=== PATIENT | female | born 1980 | race Caucasian/White ===

== ENCOUNTER 2023-12-23 15:55 | Emergency (ER) | payer BC ==
--- NOTE | 2023-12-23 16:09 | ED ---
Chest Pain HPI - General Stated Complaint: chest pain Time Seen by Provider: 12/23/23 16:08 - History of Present Illness Initial Comments: This patient is a 43-year-old woman who presents to evaluation for chest pain that came on around 2:30 PM. The patient states she had been at home having a drink with her because he had the day off. She states that she developed substernal chest pain going towards the right shoulder and back. She described as a pressure. She states the pain is constant and she has not really noticed anything that helps or makes it worse. She also had intense nausea and vomiting,. She has not noted any blood or coffee-ground material. When the pain persisted they called ambulance she states she was given ondansetron which helped with the nausea and vomiting. She was also given aspirin and nitroglycerin and she did not really note any change in the pain. MD Complaint: chest pain Onset/Timin -: hour(s) Onset: during rest Pain Location: substernal, right chest Pain Radiation: RUE, back Severity: severe Quality: other (Pressure) Consistency: constant Improves With: nothing Worsens With: nothing Anginal Symptoms: nausea, vomiting Treatments Prior to Arrival: aspirin, nitroglycerin - Related Data Previous Rx's Medication Instructions Recorded Ondansetron Odt [Zofran ODT] 4 mg PO Q8HR PRN #10 tab 12/23/23 Allergies Allergy/AdvReac Type Severity Reaction Status Date / Time codeine Allergy Rash/Hives Verified 12/23/23 16:21 Review of Systems ROS Statement: Those systems with pertinent positive or pertinent negative responses have been documented in the HPI. ROS Other: All systems not noted in ROS Statement are negative. Constitutional: Denies: fever, chills Respiratory: Denies: cough, dyspnea, hemoptysis Cardiovascular: Reports: chest pain. Denies: palpitations, orthopnea, edema, syncope Gastrointestinal: Reports: nausea, vomiting. Denies: abdominal pain, diarrhea, constipation, melena, hematochezia Genitourinary: Denies: dysuria, hematuria Musculoskeletal: Denies: back pain Skin: Denies: rash Neurological: Denies: headache, weakness EKG Findings - EKG Results: EKG: interpreted by ERMD, sinus rhythm (Rate 77 bpm) - Blocks, [place], Hypertrophy, ST Abn: AV and intraventricular conduction: right bundle branch block (fixed/intermittent, complete/incomplete), left anterior fascicular block General Exam Limitations: no limitations General appearance: alert, in no apparent distress Head exam: Present: atraumatic, normocephalic Eye exam: Present: normal appearance. Absent: scleral icterus, conjunctival injection ENT exam: Present: normal oropharynx Neck exam: Present: normal inspection Respiratory exam: Present: normal lung sounds bilaterally. Absent: respiratory distress, wheezes, rales, rhonchi, stridor, chest wall tenderness, accessory muscle use Cardiovascular Exam: Present: regular rate, normal rhythm, normal heart sounds. Absent: systolic murmur, diastolic murmur, rubs, gallop GI/Abdominal exam: Present: soft. Absent: distended, tenderness, guarding, rebound, rigid, mass, pulsatile mass Extremities exam: Present: normal inspection, normal capillary refill. Absent: pedal edema, calf tenderness Back exam: Present: normal inspection. Absent: CVA tenderness (R), CVA tenderness (L) Neurological exam: Present: alert Skin exam: Present: warm, dry, intact, normal color. Absent: rash Course Vital Signs 12/23/23 12/23/23 12/23/23 16:00 16:59 18:44 Temperature 98.0 F Pulse Rate 82 80 73 Respiratory 20 18 18 Rate Blood Pressure 126/77 139/78 144/84 O2 Sat by Pulse 97 96 97 Oximetry 12/23/23 12/23/23 20:06 22:35 Temperature Pulse Rate 75 71 Respiratory 15 15 Rate Blood Pressure 140/90 136/84 O2 Sat by Pulse 97 96 Oximetry Chest Pain MDM - MDM The patient had chest x-ray that I interpreted as negative for acute infiltrate, pneumothorax, congestive heart failure The patient had CT scan of the chest that I interpreted as negative for pulmonary embolism. Was pt. sent in by a medical professional or institution (, PA, CONSUMER STUDIES PROFESSOR, urgent care, hospital, or alf...) When possible be specific @ -[No] Did you speak to anyone other than the patient for history (EMS, parent, family, police, friend...)? What history was obtained from this source @ -[No] Did you review nursing and triage notes (agree or disagree)? Why? @ -[I reviewed and agree with nursing and triage notes] Were old charts reviewed (outside hosp., previous admission, EMS record, old EKG, old radiological studies, urgent care reports/EKG's, alf records)? Report findings @ -[No old charts were reviewed] Differential Diagnosis (chest pain, altered mental status, abdominal pain women, abdominal pain men, vaginal bleeding, weakness, fever, dyspnea, syncope, headache, dizziness, GI bleed, back pain, seizure, CVA, palpatations, mental health, musculoskeletal)? @ -[Differential Chest Pain: Stable Angina, Unstable Angina, STEMI, NSTEMI Aortic Dissection, Pneumothorax, Musculoskeletal, Esophageal Spasm GERD, Cholecystitis, Pancreatitis, Zoster, this is not meant to be an all-inclusive list. EKG interpreted by me (3pts min.). @ -[I interpreted as above] X-rays interpreted by me (1pt min.). @ -[I interpreted as above CT interpreted by me (1pt min.). @ -I interpreted as above U/S interpreted by me (1pt. min.). @ -[None done] What testing was considered but not performed or refused? (CT, X-rays, U/S, labs)? Why? @ -[None] What meds were considered but not given or refused? Why? @ -[None] Did you discuss the management of the patient with other professionals (professionals i.e. , PA, CONSUMER STUDIES PROFESSOR, lab, RT, psych nurse, addiction social worker, public aid eligibility assistant, teacher, enforcement officer, top case assembler)? Give summary @ -[No] Was smoking cessation discussed for >3mins.? @ -[No] Was critical care preformed (if so, how long)? @ -[No] Were there social determinants of health that impacted care today? How? (Homelessness, low income, unemployed, alcoholism, drug addiction, transportation, low edu. Level, literacy, decrease access to med. care, fdc, rehab)? @ -[No] Was there de-escalation of care discussed even if they declined (Discuss DNR or withdrawal of care, Hospice)? DNR status @ -[No] What co-morbidities impacted this encounter? (DM, HTN, Smoking, COPD, CAD, Cancer, CVA, ARF, Chemo, Hep., AIDS, mental health diagnosis, sleep apnea, morbid obesity)? @ -[None] Was patient admitted / discharged? Hospital course, mention meds given and route, prescriptions, significant lab abnormalities, going to OR and other pertinent info. @ -[Patient is a 43-year-old woman here to have evaluation of chest pain. The patient did have mild elevation of D-dimer but CT scan does not reveal evidence of pulmonary embolism. The patient feeling better on reevaluation and would like to go home. Patient declined telemetry admission for serial enzymes. Discussed appropriate further care and follow-up as well as return parameters. Undiagnosed new problem with uncertain prognosis? @ -[No] Drug Therapy requiring intensive monitoring for toxicity (Heparin, Nitro, Insulin, Cardizem)? @ -[No] Were any procedures done? @ -[No] Diagnosis/symptom? @ -[Acute chest pain Acute, or Chronic, or Acute on Chronic? @ -[Acute Uncomplicated (without systemic symptoms) or Complicated (systemic symptoms)? @ -[Uncomplicated Side effects of treatment? @ -[No] Exacerbation, Progression, or Severe Exacerbation? @ -[No] Poses a threat to life or bodily function? How? (Chest pain, [place], [place], pneumonia, PE, COPD, DKA, ARF, appy, cholecystitis, CVA, Diverticulitis, Homicidal, Suicidal, threat to staff... and all critical care pts) @ -[No] Disposition Clinical Impression: Chest pain Disposition: HOME SELF-CARE Condition: Good Instructions (If sedation given, give patient instructions): Chest Pain (ED) Additional Instructions: As we discussed, follow with the veterans rehabilitation counselor to see about having a stress test. Should you have additional episodes and they are related to food follow with the surgeon to see about having a HIDA scan or other gallbladder tests. If you are having symptoms, return emergency department. Prescriptions: Ondansetron Odt [Zofran ODT] 4 mg PO Q8HR PRN #10 tab PRN Reason: Nausea Is patient prescribed a controlled substance at d/c from ED?: No Referrals: None,Stated [Primary Care Provider] - 1-2 days Tolu Barrett MD [STAFF PHYSICIAN] - 1-2 days Cornelio Hamilton MD [STAFF PHYSICIAN] - 1-2 days
[2023-12-23] MEDS: MORPHINE SULFATE 4 MG/ML SYRINGE IV STA (16:29)
[2023-12-23] MEDS: SODIUM CHLORIDE 0.9% 1,000 ML IV STA (16:30)
[2023-12-23 17:01] LABS: Basophils % (A) 0 %; Eosinophils # (A) 0.1 k/uL (0-0.7); Eosinophils % (A) 1 %; HCT 46.6 % (34.0-46.0); HGB 16.2 gm/dL (11.4-16.0); Lymphocytes # (A) 1.7 k/uL (1.0-4.8); Lymphocytes % (A) 20 %; MCH 33.7 pg (25.0-35.0); MCHC 34.8 g/dL (31.0-37.0); MCV 96.6 fL (80.0-100.0); Mean Platelet Volume 10.4; Monocytes # (A) 0.6 k/uL (0-1.0); Monocytes % (A) 7 %; Neutrophils # (A) 6.1 k/uL (1.3-7.7); Neutrophils % (A) 71 %; Platelet Count 255 k/uL (150-450); RBC 4.83 m/uL (3.80-5.40); RDW 13.3 % (11.5-15.5); WBC 8.5 k/uL (3.8-10.6)
--- NOTE | 2023-12-23 17:08 | XR ---
EXAMINATION TYPE: XR chest 2V DATE OF EXAM: 12/23/2023 COMPARISON: None HISTORY: 43-year-old female with chest pain TECHNIQUE: PA and lateral views FINDINGS: The cardiomediastinal silhouette, aorta, and pulmonary vasculature are within normal limits. Lungs an d pleural spaces are clear. IMPRESSION: No acute cardiopulmonary process. [facility], , 12/23/2023 5:06 PM
[2023-12-23 17:45] LABS: Prothrombin Time 11.2 sec (10.0-12.5)
[2023-12-23 17:55] LABS: Partial Thromboplastin Time 20.3 sec (22.0-30.0)
[2023-12-23 18:46] VITALS: TEMP 98
[2023-12-23 19:28] LABS: ALT 112 U/L (4-34); African American GFR (CKD) >90 (>60 ml/min/1.73 sqM); Amylase 37 U/L (30-110); Anion Gap 9 mmol/L; Blood Urea Nitrogen 3 mg/dL (7-17); Calcium 8.5 mg/dL (8.4-10.2); Carbon Dioxide 19 mmol/L (22-30); Chloride 108 mmol/L (98-107); Glucose 97 mg/dL (74-99); Lipase 153 U/L (23-300); Non-African American GFR(CKD) >90 (>60 ml/min/1.73 sqM); Sodium 136 mmol/L (137-145); Total Bilirubin 0.9 mg/dL (0.2-1.3)
[2023-12-23 19:30] LABS: AST 92 U/L (14-36); Albumin 3.7 g/dL (3.5-5.0); Alkaline Phosphatase 33 U/L (38-126); Magnesium 1.7 mg/dL (1.6-2.3); Potassium 4.6 mmol/L (3.5-5.1); Total Protein 6.1 g/dL (6.3-8.2)
[2023-12-23 20:10] VITALS: RESP 15
--- NOTE | 2023-12-23 20:55 | CT ---
EXAMINATION TYPE: CT chest angio for PE CT DLP: 447.3 mGycm, Automated exposure control for dose reduction was used. DATE OF EXAM: 12/23/2023 7:38 PM COMPARISON: Same day chest x-ray CLINICAL INDICATION:Female, 43 years old with history of chest pain, possible PE; chest pain TECHNIQUE/CONTRAST: CTA scan of the thorax is performed with IV Contrast, patient injected with 100 mL of Isovue 370, MIP images are created and reviewed these are created on a separate workstation.. FINDINGS: There is suboptimal contrast bolus and timing. PULMONARY ARTERIES: There is no evidence for a filling defect within the pulmonary vasculature to sug gest acute pulmonary embolism. Pulmonary trunk is normal in size. Trunk measures 2.3 CM. AORTA: Nonaneurysmal without significant atherosclerotic disease. HEART: Normal heart size. No significant pericardial effusion. LOWER NECK: No significant findings. Unremarkable thyroid. MEDIASTINUM: No enlarged nodes by CT size criteria. SOFT TISSUES/AXILLA: Unremarkable soft tissues. No axillary adenopathy. LUNGS/ PLEURA: Dependent opacities in the lower lobes and some patchy intermixed groundglass opacitie s, right greater than left. Small right and trace left pleural effusions. No pneumothorax. AIRWAY: Central airways are patent. MUSCULOSKELETAL: No acute osseous abnormality. Mild disc degeneration changes are present throughout the included thoracolumbar spine. UPPER ABDOMEN: Hepatic steatosis. IMPRESSION: 1. Limited study is without evidence of pulmonary embolus. 2. Small right and trace left pleural effusions. 3. Dependent pulmonary opacities likely atelectasis with superimposed infectious/inflammatory proces s possible in the proper clinical setting. [facility], , 12/23/2023 8:53 PM
[2023-12-23] MEDS: ONDANSETRON 4 MG/2 ML VIAL IVP STA (22:07)
[2023-12-23 22:36] VITALS: BP 136/84; PULSE 71
== END 2023-12-23 22:36 | disposition home or self-care (01) ==
LOC: EC 15:55
CPT/HCPCS: 36415; 71046; 71275; 80053; 82150; 83690; 83735; 84484; 85025; 85379; 85610; 85730; 93005; 96361; 96374; 96375; 99285